=== PATIENT | female | born 1995 | race Caucasian/White ===

== ENCOUNTER → 2020-05-27 12:31 | Outpatient (BNVA) | payer OTHER, SELFPAY | PROVIDERS: Family Provider Family Medicine; Visit Provider Nurse Practitioner | DX: Z20.828 Contact with and (suspected) exposure to other viral communicable diseases (principal); R50.9 Fever, unspecified | CPT/HCPCS: 81025; 87071; 87635; 87880 ==

== ENCOUNTER → 2020-06-24 16:07 | Outpatient (BNVA) | payer OTHER, SELFPAY | PROVIDERS: Family Provider Family Medicine; Visit Provider Obstetrics & Gynecology | DX: O03.9 Complete or unspecified spontaneous abortion without complication (principal); O02.1 Missed abortion | CPT/HCPCS: 84702; 85025; 86850; 86900 ==

== ENCOUNTER 2020-06-27 00:26 | Emergency (ER) | payer OTHER, SELFPAY ==
[2020-06-27 00:45] VITALS: BP 119/86; PULSE 131; RESP 17; TEMP 36.6; O2SAT 98; BMI 18.6
--- NOTE | 2020-06-27 00:50 | ED_ITS ---
HPI - General: Chief complaint: OB/Uterine Contractions Stated complaint: blood loss Time Seen by Provider: 06/27/20 00:41 Source: patient Mode of arrival: ambulatory Limitations: no limitations History of Present Illness: HPI Narrative: 24-year-old transgendered who is going from female to male who is currently 6 weeks . Patient had seen Dr. Harding and had an ultrasound done on the that showed demise at 6 weeks. Patient has been on misoprostol and states started having heavy bleeding tonight. Patient states they have passed clots. Patient has had abdominal cramping rates a 4 out of 10. Denies any worsening proving factors. Patient's blood type is O+. Date of Last Menstrual Period: 04/18/20 Associated symptoms: Deny abdominal pain, headache(s), nausea or vomiting Review of Systems Const: Denies: fever(s), chills, body aches or change in appetite Eyes: Denies: blurry vision or eye discomfort ENMT: Denies: throat pain or dental pain Card: Denies: chest pain Resp: Denies: dyspnea GI: Denies: abdominal pain, nausea, vomiting or diarrhea : Reports: vaginal bleeding Musc: Denies: neck pain or back pain Skin/Breast: Denies: rash Neuro: Denies: headache(s) Psych: Denies: depression Christian/Lymph: Denies: easy bruising All/Imm: Denies: urticaria PFSH ED PFSH: Medical History [id number] transgender person 2014-patient decided to medically transition to male and started testosterone and did well on this managed by Dr. Pascual Torres in [place]. In 2017 he underwent a double mastectomy as part of the transition process. In 2018 he and his partner were trying to get and he was off of testosterone for about 1 year. Had a lot of mood issues and problems being off of the testosterone and restarted testosterone in the beginning of 2019 and continued this until about December 2019 when he stopped testosterone again with the plan of trying to get . No pertinent past medical history Denies diabetes, asthma, hypertension, seizures, DVT/PE PCP: None Surgical History H/O umbilical hernia repair x2 --2013 and 2014. She states that both procedures were laparoscopic and as far as she can think of no mesh was used. S/P mastectomy, bilateral 2018--elective done as part of transitioning. Procedure performed at [facility] in [place] she states that there may be a little bit of breast tissue that was left behind and her nipples were surgically reimplanted. S/P ORIF (open reduction internal fixation) fracture Done at the age of 11 after a fall--left lower arm Family History Mother Diabetes Grandmother Diabetes paternal and maternal Breast cancer paternal, diagnosed after age 50 Grandfather Diabetes maternal Hypertension maternal Hyperlipidemia maternal Colon cancer maternal, diagnosed in his late 60s Heart disease maternal Denies family history of Ovarian cancer Uterine cancer Thyroid condition Stroke Female Reproductive History: Date of last menstrual period: 04/18/20 Physical Exam Const: COMMON NORMALS: no acute distress, patient oriented x3 and healthy appearing HENMT: COMMON NORMALS: normocephalic and atraumatic HEAD & SCALP: normocephalic and atraumatic Eye: COMMON NORMALS: Equal, round and reactive pupils present and EOMs intact bilaterally PUPIL: Yes Equal, round and reactive pupils present Neck/C-Spine: COMMON NORMALS: full ROM and supple Chest: COMMONS NORMALS: normal inspection of the chest and normal palpation of entire chest wall Resp: COMMON NORMALS: normal respiratory effort, No retractions, No use of accessory muscles and clear to auscultation bilaterally AUSCULTATION: clear to auscultation bilaterally Cardio: COMMON NORMALS: regular rate, regular rhythm and No murmurs present (Cardio) RATE: regular rate RHYTHM: regular rhythm GI: COMMON NORMALS: Normal to inspection, nondistended, normoactive bowel sounds present, Soft to palpation, non-tender and no masses PALPATION: Yes Soft to palpation : OTHER: Large amount of clot in vaginal vault with a large clot that I removed from the cervix Extremity: COMMON NORMALS: normal to inspection and full ROM Neuro: COMMON NORMALS: patient oriented x3, moves all extremities and no focal motor deficits Psych: COMMON NORMALS: mental status grossly normal, Normal thought process present and cooperative THOUGHT PROCESS: Normal thought process present Skin: COMMON NORMALS: no rashes or lesions noted and no wounds GENERAL SKIN EXAM: no rashes or lesions noted Course Vital Signs: Vital signs: Vital Signs Temperature 97.9 F 06/27/20 00:45 Pulse Rate 121 H 06/27/20 00:51 Respiratory Rate 18 06/27/20 00:51 Blood Pressure 119/86 06/27/20 00:51 Pulse Oximetry 98 06/27/20 00:51 MDM - OB/Uterine Contractions Lab Data: Labs: Lab Results 06/27/20 Range/Units 01:05 WBC 8.5 (4.0-10.0) 10^3/ uL RBC 4.37 (4.1-5.3) 10^6/u L Hgb 13.0 (11.5-15.3) g/dL Hct 38.5 (37.0-47.0) % MCV 88.1 (81-99) fL MCH 29.7 (28.0-34.0) pg MCHC 33.8 (30.0-36.0) g/dL RDW 11.4 L (12.1-15.1) % Plt Count 223 (130-400) 10^3/c mm MPV 10.2 (7.4-10.4) fL Neut % (Auto) 73.6 % Lymph % (Auto) 19.0 % [place] % (Auto) 6.1 % Eos % (Auto) 0.7 % Baso % (Auto) 0.4 % Neut # (Auto) 6.29 (1.8-7.7) 10^3/u L Lymph # (Auto) 1.6 (0.8-4.8) 10^3/u L [place] # (Auto) 0.5 (0.2-0.9) 10^3/u L Eos # (Auto) 0.1 (0.0-0.8) 10^3/u L Baso # (Auto) 0.0 (0.0-0.1) 10^3/u L Nucleated RBC % (a uto) 0 % Nucleated RBCs # 0.0 /100WBC Discharge Plan Discharge Prescriptions: No Action prenat.vits,lokesh,hve-efax-aijmt Tablet 1 tab PO DAILY RF: 0 misoprostol [Cytotec] 200 mcg tablet 600 mcg sublingual ONCE Qty: 3 RF: 0 Coding Level of Care Code ED Plastic Card Grader Cardroom for Chg Fwd Exam Comprehensive
[2020-06-27 00:51] VITALS: BP 119/86; PULSE 121; RESP 18; O2SAT 98
[2020-06-27] MEDS: sodium chloride 0.9% 1,000 ML 999 ML IV ×3 (01:10→04:10)
[2020-06-27 01:16] LABS: Basophils % 0.4 %; Eosinophils # 0.1 10^3/uL (0.0-0.8); Eosinophils % 0.7 %; Hematocrit 38.5 % (37.0-47.0); Lymphocytes # 1.6 10^3/uL (0.8-4.8); Mean Corpuscular HGB Conc 33.8 g/dL (30.0-36.0); Mean Corpuscular Hemoglobin 29.7 pg (28.0-34.0); Mean Corpuscular Volume 88.1 fL (81-99); Mean Platelet Volume 10.2 fL (7.4-10.4); Monocytes # 0.5 10^3/uL (0.2-0.9); Monocytes % 6.1 %; Neutrophils # 6.29 10^3/uL (1.8-7.7); Neutrophils % 73.6 %; Nucleated Red Blood Cells % 0 %; Platelet Count 223 10^3/cmm (130-400); Red Blood Count 4.37 10^6/uL (4.1-5.3); Red Cell Distribution Width 11.4 % (12.1-15.1); White Blood Count 8.5 10^3/uL (4.0-10.0)
[2020-06-27] MEDS: ondansetron 2 mg/ML SDV 2 mL 4 MG IVP (02:21)
[2020-06-27 02:25] VITALS: RESP 18; O2SAT 98
[2020-06-27] MEDS: morphine 4 mg/mL SDV 1 mL IVP (02:25)
[2020-06-27] MEDS: miSOPROStol 200 mcg Tablet 600 MCG PO (02:36)
[2020-06-27 03:06] LABS: Hematocrit 32.2 % (37.0-47.0); Hemoglobin 10.6 g/dL (11.5-15.3)
[2020-06-27 04:19] VITALS: BP 101/67; PULSE 87
[2020-06-27 04:48] LABS: Hematocrit 27.4 % (37.0-47.0); Hemoglobin 9.2 g/dL (11.5-15.3)
[2020-06-27 05:38] VITALS: BP 107/68; PULSE 107; RESP 18; O2SAT 100
== END 2020-06-27 05:36 | disposition home or self-care (01) ==
PROVIDERS: Emergency Provider Emergency Medicine; PCP Family Medicine
DX: N93.9 Abnormal uterine and vaginal bleeding, unspecified (principal); R10.9 Unspecified abdominal pain
CPT/HCPCS: 12345; 85014; 85018; 85025; 96361; 96374; 96375; 99282; 99284; E0352; J2270; J2405; J7030

== ENCOUNTER → 2020-07-05 09:04 | Outpatient (BNVA) | payer OTHER, SELFPAY | PROVIDERS: PCP Family Medicine; Visit Provider Obstetrics & Gynecology | DX: O02.1 Missed abortion (principal) | CPT/HCPCS: 84702 ==

== ENCOUNTER → 2020-07-31 15:50 | Outpatient (BNVA) | payer OTHER, SELFPAY | PROVIDERS: PCP Family Medicine; Visit Provider Obstetrics & Gynecology | DX: Z12.4 Encounter for screening for malignant neoplasm of cervix (principal); F41.9 Anxiety disorder, unspecified | CPT/HCPCS: 88175 ==

== ENCOUNTER → 2020-12-09 10:02 | Outpatient (BNVA) | payer OTHER, SELFPAY | PROVIDERS: PCP Family Medicine; Visit Provider Obstetrics & Gynecology | DX: N97.9 Female infertility, unspecified (principal) | CPT/HCPCS: 84144 ==

== ENCOUNTER → 2021-01-08 11:15 | Outpatient (BNVA) | payer SELFPAY | PROVIDERS: PCP Family Medicine; Visit Provider Obstetrics & Gynecology | DX: N97.9 Female infertility, unspecified (principal) | CPT/HCPCS: 84144 ==

== ENCOUNTER 2023-01-05 13:18 | Emergency (ER) | payer OTHER, SELFPAY ==
[2023-01-05 13:25] VITALS: BP 152/91; PULSE 80; RESP 16; TEMP 36.6; O2SAT 98; BMI 19.2
--- NOTE | 2023-01-05 13:47 | W.ED.UPPEXIN ---
HPI - Extremity Injury (Upper) General: Chief Complaint: Extremity Injury, Upper Stated Complaint: fall, left arm pain Time Seen by Provider: 01/05/23 13:41 Source: patient Mode of arrival: ambulatory Limitations: no limitations History of Present Illness: Patient is a 27-year-old assigned female at currently undergoing female to male transition here for complaints of an injury to his left forearm that he sustained earlier today after accidentally stepping into a hole and striking the ulnar aspect of the forearm on an object. He has no other complaints or injuries at this time. Reports previous fracture to forearm many years ago. MD complaint: injury to: left and forearm Onset (ago): hour(s) Other Extremity Injury: Left: forearm Other injuries: none Severity: moderate Relieving factors: immobilization Exacerbating factors: movement of extremity Context: fall and direct blow Associated symptoms: Reports no associated symptoms; Denies neck pain Review of Systems Musc: Reports: extremity pain; Denies: neck pain, back pain, extremity swelling, joint pain or joint swelling Skin/Breast: Reports: other (left forearm abrasion) Neuro: Denies: numbness in extremities or sensory changes PFSH ED PFSH: Medical History [id number] transgender person 2015-patient decided to medically transition to male and started testosterone and did well on this managed by Dr. Pascual Torres in [place]. In 2018 he underwent a double mastectomy as part of the transition process. He is currently on testosterone supplementation managed by Dr. Anaya and his nurse practitioner in [place]. No pertinent past medical history Denies diabetes, asthma, hypertension, seizures, DVT/PE PCP: None Surgical History H/O umbilical hernia repair x2 --2013 and 2014. She states that both procedures were laparoscopic and as far as she can think of no mesh was used. S/P mastectomy, bilateral 2018--elective done as part of transitioning. Procedure performed at [facility] in [place] she states that there may be a little bit of breast tissue that was left behind and her nipples were surgically reimplanted. S/P ORIF (open reduction internal fixation) fracture Done at the age of 11 after a fall--left lower arm Family History Mother Diabetes Grandmother Diabetes maternal Breast cancer paternal, diagnosed after age 50 Grandfather Diabetes maternal Hypertension maternal Hyperlipidemia maternal Colon cancer maternal, diagnosed in his late 60s Heart disease maternal Denies family history of Ovarian cancer Uterine cancer Thyroid condition Stroke Physical Exam Const: COMMON NORMALS: no acute distress, average body habitus, no limitations, healthy appearing, alert and well nourished Extremity: COMMON NORMALS: full ROM, capillary refill normal, no joint enlargement, no clubbing, cyanosis or edema, no calf tenderness and no pedal edema GENERAL: Yes normal exam except as noted LEFT UPPER EXTREMITY: Yes lower arm (contusion and discomfort distal ulnar forearm) Left lower arm: Yes neurovascular exam (normal) Neuro: COMMON NORMALS: moves all extremities, no focal motor deficits and no sensory deficits noted SENSORIUM/ORIENTATION: Yes alert Skin: TRAUMA: abrasion (L forearm) Course Vital Signs: Vital signs: Vital Signs Temperature 97.9 F 01/05/23 13:25 Pulse Rate 80 01/05/23 13:25 Respiratory Rate 16 01/05/23 13:25 Blood Pressure 152/91 01/05/23 13:25 Pulse Oximetry 98 01/05/23 13:25 Oxygen Delivery Me thod Room Air 01/05/23 13:25 MDM - Extremity Injury (Upper) Medical Decision Making XR negative. Will treat conservatively. Can follow up with PCP in 1-2 weeks for continued pain. Discharge Plan Discharge Patient Disposition: Home Clinical Impression: Contusion of left forearm Qualifiers: Encounter type: initial encounter Qualified Code(s): S50.12XA - Contusion of left forearm, initial encounter Condition: Stable Prescriptions: No Action testoterone IM Rx Instructions: 2.5 mg Discharge Orders: Discharge ED (Routine); Ordered 01/05/23 Ordered By: Paulina Cisse Patient Instructions: Contusion in Adults (ED) Coding Level of Care Code ED Admissions Representative for Avril Bourne
--- NOTE | 2023-01-05 13:50 | XRR_ITS ---
PROCEDURE INFORMATION: Exam: XR Left Forearm Exam date and time: 01/05/2023 1:57 PM Age: 27 years old Clinical indication: Injury or trauma; Fall; Blunt trauma (contusions or hematomas); Arm, lower; Left; Prior surgery; Surgery date: 6+ months; Surgery type: Not specified; Additional info: Fall/injury TECHNIQUE: Imaging protocol: Radiologic exam of the left forearm. Views: 2 views. COMPARISON: No relevant prior studies available. FINDINGS: Bones/joints: Metallic plate and multiple screws a are attached to the distal shaft of the radius on the ventral aspect. The lumbee bones do not show acute abnormality. Soft tissues: Normal. XR/XR forearm LT 2V [id number] IMPRESSION: 1. Metallic plate and screws distal radius in good position 2. Otherwise No acute findings.
--- NOTE | 2023-01-08 12:38 | DCPLANNER ---
senior sales manager called patient due to no primary care physician - no answer at this time.
--- NOTE | 2023-01-27 13:16 | DCPLANNER ---
manager risk called patient due to no primary care physician patient stated that he sees Dr. Pascual Martino in [place]
== END 2023-01-05 14:22 | disposition home or self-care (01) ==
PROVIDERS: Emergency Provider Physician Assistant; PCP Nurse Practitioner Family
DX: S50.12XA Contusion of left forearm, initial encounter (principal); Z79.890 Hormone replacement therapy; W18.42XA Slipping, tripping and stumbling without falling due to stepping into hole or opening, initial encounter
CPT/HCPCS: 73090; 99283